=== PATIENT | female | born 1990 | race African-American/Black ===

== ENCOUNTER 2019-02-05 16:54 | Emergency (ER) | payer MEDICAID, MEDICARE ==
[~2019-02-05] VITALS: Ht 162.6 cm; Wt 98.4 kg
[~2019-02-05 16:54] MED LIST: IBUP-2028 PO; TRAM50TA3 PO
[2019-02-05] MEDS ORDERED: HYDR25TA PO (18:06)
[2019-02-05] MEDS ORDERED: ASPIRIN 81MG TABLET PO ONE (21:45)
[2019-02-05] MEDS ORDERED: CLONIDINE 0.1MG TABLET PO ONE (21:45)
[2019-02-05 21:54] LABS: EOSINOPHILS % 2.4 % (0.0-5.0); HEMATOCRIT. 39.1 % (36.0-48.0); LYMPHOCYTES % 39.5 % (20.0-50.0); MEAN CORPUSCULAR HEMOGLOBIN 27.2 pg (28.0-32.0); MEAN CORPUSCULAR VOLUME 81.7 fL (81.0-99.0); MEAN PLATELET VOLUME 8.2 fl (7.4-10.4); MONOCYTES % 4.9 % (2.0-8.0); NEUTROPHILS % 52.2 % (40.0-76.0); PLATELET 338 x1000/uL (130-400); RED BLOOD CELL COUNT 4.79 mill/uL (4.2-5.4); RED CELL DISTRIBUTION WIDTH 13.2 % (11.6-14.6)
[2019-02-05 21:56] LABS: CHLORIDE 100 mEq/L (98-107)
[2019-02-05 22:06] LABS: HCG SCREEN NEGATIVE
[2019-02-06 00:41] VITALS: BP 104/63
== END 2019-02-06 01:00 | disposition home or self-care (01) ==
LOC: ER 16:54
DX: I10 Essential (primary) hypertension (principal); R07.89 Other chest pain; R20.2 Paresthesia of skin; J45.909 Unspecified asthma, uncomplicated; I25.2 Old myocardial infarction; Z79.899 Other long term (current) drug therapy
CPT/HCPCS: 36415; 71045; 80053; 82962; 83690; 83880; 84484; 84703; 85025; 85379; 93005; 99284; Z7610

== ENCOUNTER 2019-08-27 16:16 | Emergency (ER) | payer MEDICARE ==
[~2019-08-27] VITALS: Ht 162.6 cm; Wt 100.0 kg
[~2019-08-27 16:16] MED LIST changes: +HYDR25TA PO
[2019-08-28 01:42] VITALS: BP 146/80
== END 2019-08-28 01:43 | disposition home or self-care (01) ==
LOC: ER 16:16
DX: R07.89 Other chest pain (principal); J45.909 Unspecified asthma, uncomplicated; I10 Essential (primary) hypertension; Z79.899 Other long term (current) drug therapy
CPT/HCPCS: 36415; 84484; 93005; 99285